=== PATIENT | male | born 1975 | race Caucasian/White ===

== ENCOUNTER → 2017-02-10 | Outpatient (CLI) | payer OTHER ==
[~2017-02-10] MED LIST: AMO500 PO; BIA500 PO; PRI20 PO
[2017-02-10 07:26] LABS: ALKALINE PHOSPHATASE 78 U/L (46-116); ALT/SGPT 26 U/L (16-63); AST/SGOT 13 U/L (15-37); BILIRUBIN TOTAL 0.58 mg/dL (0.20-1.00); CARBON DIOXIDE 31.9 mmol/L (21-32); CHLORIDE SERUM 106 mmol/L (98-107); CREATININE SERUM 1.1 mg/dL (0.7-1.3); GFR1 > 60 mL/min; GLUCOSE SERUM 112 mg/dL (74-106); LACTIC DEHYDROGENASE (LDH) 123 U/L (100-190); POTASSIUM SERUM 4.1 mmol/L (3.5-5.1); SODIUM SERUM 145 mmol/L (136-145); TOTAL PROTEIN, SERUM 7.4 g/dL (6.4-8.2)
[2017-02-10 07:27] LABS: BASOPHIL % 0.7 % (0-2); PLATELET COUNT 182 x10^3mcL (130-400)
[2017-02-10 07:29] LABS: RED CELL DISTRIBUTION WIDTH 16.6 % (11.5-14.5)
== END | disposition home or self-care (01) ==
LOC: CT 06:05
PROC: BW201ZZ Computerized Tomography (CT Scan) of Abdomen using Low Osmolar Contrast (ICD-10-PCS; principal; 2017-02-10)
DX: Z90.3 Acquired absence of stomach [part of] (principal)
CPT/HCPCS: A9698; Q9966; Q9967